=== PATIENT | female | born 1945 | race Caucasian/White ===

== ENCOUNTER 2017-08-27 15:57 | Emergency (ER) | payer MEDICARE, OTHER ==
--- NOTE | 2017-08-27 16:41 | ER Document Report ---
ED Medical Screen (RME) - General Chief Complaint: Productive Cough Stated Complaint: COUGH Time Seen by Provider: 08/27/17 16:38 Mode of Arrival: Ambulatory Information source: Patient TRAVEL OUTSIDE OF THE [place] IN LAST 30 DAYS: No - HPI Patient complains to provider of: cough Onset: Other - pt states she has had recurrent productive cough for the past few weeks despite being placed on abx and steroids by her PCP. Has had low grade fever as well - Related Data Allergies/Adverse Reactions: No Known Drug Allergies Allergy (Verified 08/27/17 15:59) Past Medical History - Social History Chew tobacco use (# tins/day): No Frequency of alcohol use: None Drug Abuse: None - Past Medical History Cardiac Medical History: Denies: Hx Coronary Artery Disease, Hx Heart Attack, Hx Hypertension Pulmonary Medical History: Denies: Hx Asthma, Hx Bronchitis, Hx COPD, Hx Pneumonia Neurological Medical History: Denies: Hx Cerebrovascular Accident, Hx Seizures Renal/ Medical History: Denies: Hx Peritoneal Dialysis GI Medical History: Denies: Hx Hepatitis, Hx Hiatal Hernia, Hx Ulcer Musculoskeltal Medical History: Reports Hx Arthritis Infectious Medical History: Denies: Hx Hepatitis Past Surgical History: Reports: Hx Hysterectomy. Denies: Hx Mastectomy, Hx Open Heart Surgery, Hx Pacemaker - Immunizations Hx Diphtheria, Pertussis, Tetanus Vaccination: Yes Physical Exam - Vital signs Vitals: Temp Pulse Resp BP Pulse Ox 98.2 F 81 18 139/76 H 97 08/27/17 16:19 08/27/17 16:19 08/27/17 16:19 08/27/17 16:19 08/27/17 16:19 Course - Vital Signs Vital signs: Temp Pulse Resp BP Pulse Ox 98.2 F 81 18 139/76 H 97 08/27/17 16:19 08/27/17 16:19 08/27/17 16:19 08/27/17 16:19 08/27/17 16:19
[2017-08-27 17:31] LABS: ABSOLUTE EOSINOPHILS # (AUTO) 0.1 10^3/uL (0.0-0.6); ABSOLUTE LYMPHOCYTES (AUTO) 1.8 10^3/uL (0.5-4.7); ABSOLUTE MONOCYTES (AUTO) 0.6 10^3/uL (0.1-1.4); BASOPHILS % (AUTO) 0.5 % (0-2); EOSINOPHILS % (AUTO) 2.9 % (0-6); HEMATOCRIT 44.1 % (36.0-47.0); HEMOGLOBIN 14.9 g/dL (12.0-15.5); HGB HCT DIFFERENCE 0.6; LYMPHOCYTES % (AUTO) 39.9 % (13-45); MEAN CORPUSCULAR HEMOGLOBIN 33.1 pg (27.0-33.4); MEAN CORPUSCULAR HGB CONC 33.9 g/dL (32.0-36.0); MEAN CORPUSCULAR VOLUME 98 fl (80-97); RED BLOOD COUNT 4.52 10^6/uL (3.72-5.28); RED CELL DISTRIBUTION WIDTH 12.9 % (11.5-14.0); SEGMENTED NEUTROPHILS % (AUTO) 43.7 % (42-78); WHITE BLOOD COUNT 4.5 10^3/uL (4.0-10.5)
--- NOTE | 2017-08-27 17:40 | RADIOLOGY REPORT (SQ) ---
EXAM DESCRIPTION: CHEST PA/LAT COMPLETED DATE/TIME: 08/27/2017 5:26 pm REASON FOR STUDY: productive cough COMPARISON: 11/07/2012 EXAM PARAMETERS: NUMBER OF VIEWS: two views TECHNIQUE: Digital Frontal and Lateral radiographic views of the chest acquired. RADIATION DOSE: NA LIMITATIONS: none FINDINGS: LUNGS AND PLEURA: No opacities, masses or pneumothorax. No pleural effusion. MEDIASTINUM AND HILAR STRUCTURES: No masses or contour abnormalities. HEART AND VASCULAR STRUCTURES: Heart normal size. No evidence for failure. BONES: No acute findings. HARDWARE: None in the chest. OTHER: No other significant finding. IMPRESSION: NO SIGNIFICANT RADIOGRAPHIC FINDING IN THE CHEST. TECHNICAL DOCUMENTATION: JOB ID: [id number] [employer]- All Rights Reserved
[2017-08-27 17:46] LABS: ALANINE AMINOTRANSFERASE 39 U/L (9-52); ALBUMIN 4.4 g/dL (3.5-5.0); ALKALINE PHOSPHATASE 77 U/L (38-126); ANION GAP 15 (5-19); ASPARTATE AMINO TRANSFERASE 25 U/L (14-36); BILIRUBIN,DIRECT 0.3 mg/dL (0.0-0.4); BILIRUBIN,TOTAL 0.4 mg/dL (0.2-1.3); BLOOD UREA NITROGEN 12 mg/dL (7-20); CALCIUM 9.5 mg/dL (8.4-10.2); CARBON DIOXIDE 23 mmol/L (22-30); CHLORIDE 104 mmol/L (98-107); CREATININE RESULT 0.91 mg/dL (0.52-1.25); GLUCOSE 94 mg/dL (75-110); POTASSIUM 4.7 mmol/L (3.6-5.0); SODIUM 141.7 mmol/L (137-145); TOTAL PROTEIN 7.4 g/dL (6.3-8.2)
[2017-08-27] MEDS ORDERED: DOXYCYCLINE HYCLATE 100 MG TABLET PO ONE (20:48)
[2017-08-27] MEDS ORDERED: BENZONATATE 100 MG CAPSULE PO ONE (20:51)
--- NOTE | 2017-08-27 20:56 | ER Document Report ---
ED General - General Chief Complaint: Productive Cough Stated Complaint: COUGH Time Seen by Provider: 08/27/17 16:38 Mode of Arrival: Ambulatory Notes: Patient is a 72-year-old female comes emergency department for chief complaint of productive cough with yellow sputum production for the past several days, she also does have some sinus congestion and voice hoarseness. states that she sounded like she was wheezing at night. Patient does not smoke, has no history of COPD or asthma, states that she has had recurrent episodes of the same since April. She was treated with azithromycin twice before and had "shots of steroids". Patient is typically very healthy, she takes no daily medications, only past medical history reported is arthritis and hysterectomy. TRAVEL OUTSIDE OF THE [place] IN LAST 30 DAYS: No - Related Data Allergies/Adverse Reactions: No Known Drug Allergies Allergy (Verified 08/27/17 15:59) Past Medical History - General Information source: Patient - Social History Smoking Status: Never Smoker Chew tobacco use (# tins/day): No Frequency of alcohol use: None Drug Abuse: None Family History: Reviewed & Not Pertinent Patient has suicidal ideation: No Patient has homicidal ideation: No - Past Medical History Cardiac Medical History: Denies: Hx Coronary Artery Disease, Hx Heart Attack, Hx Hypertension Pulmonary Medical History: Denies: Hx Asthma, Hx Bronchitis, Hx COPD, Hx Pneumonia Neurological Medical History: Denies: Hx Cerebrovascular Accident, Hx Seizures Renal/ Medical History: Denies: Hx Peritoneal Dialysis GI Medical History: Denies: Hx Hepatitis, Hx Hiatal Hernia, Hx Ulcer Musculoskeltal Medical History: Reports Hx Arthritis Infectious Medical History: Denies: Hx Hepatitis Past Surgical History: Reports: Hx Hysterectomy. Denies: Hx Mastectomy, Hx Open Heart Surgery, Hx Pacemaker - Immunizations Hx Diphtheria, Pertussis, Tetanus Vaccination: Yes Review of Systems - Review of Systems Constitutional: See HPI EENT: No symptoms reported Cardiovascular: No symptoms reported Respiratory: See HPI Gastrointestinal: No symptoms reported Genitourinary: No symptoms reported Female Genitourinary: No symptoms reported Musculoskeletal: No symptoms reported Skin: No symptoms reported Hematologic/Lymphatic: No symptoms reported Neurological/Psychological: No symptoms reported Physical Exam - Vital signs Vitals: Temp Pulse Resp BP Pulse Ox 98.2 F 81 18 139/76 H 97 08/27/17 16:19 08/27/17 16:19 08/27/17 16:19 08/27/17 16:19 08/27/17 16:19 Interpretation: Normal - General General appearance: Appears well, Alert In distress: None - HEENT Head: Normocephalic, Atraumatic Eyes: Normal Pupils: PERRL - Respiratory Respiratory status: No respiratory distress. No: Respiratory distress, Retractions, Tachypnea Chest status: Nontender Breath sounds: Nonproductive cough, Other - Scattered coarse lung sounds in the right lung only, no wheezing, rales, rhonchi, normal lung auscultation otherwise Chest palpation: Normal - Cardiovascular Rhythm: Regular. No: Tachycardia Heart sounds: Normal auscultation, S1 appreciated, S2 appreciated Murmur: No - Abdominal Inspection: Normal Distension: No distension Bowel sounds: Normal Tenderness: Nontender Organomegaly: No organomegaly - Back Back: Normal, Nontender - Extremities General upper extremity: Normal inspection, Nontender, Normal strength, Normal temperature General lower extremity: Normal inspection, Nontender, Normal strength, Normal temperature - Neurological Neuro grossly intact: Yes Cognition: Normal Orientation: AAOx4 Bob Coma Scale Eye Opening: Spontaneous Novelty Coma Scale Verbal: Oriented Bob Coma Scale Motor: Obeys Commands Novelty Coma Scale Total: 15 Speech: Normal Motor strength normal: LUE, RUE, LLE, RLE Sensory: Normal - Psychological Associated symptoms: Normal affect, Normal mood - Skin Skin Temperature: Warm Skin Moisture: Dry Skin Color: Normal Course - Re-evaluation Re-evalutation: Patient does have some coarse breath sounds in the right lung compared to left, clear lungs otherwise, no hypoxia, tachypnea, or signs of distress. Chest x- ray unremarkable, CBC, chemistry, influenza are unremarkable. Patient has a productive cough. She most likely has bronchitis, however because of slightly abnormal lung sounds to be covered with both prednisone and doxycycline. This was decided after discussion with patient. Patient is to follow-up closely with her primary provider, she is to return immediately if she develops any concerning or worsening symptoms including difficulty breathing, spiking fever, etc. Patient and state understanding and agreement with plan. - Vital Signs Vital signs: Temp Pulse Resp BP Pulse Ox 98.2 F 76 18 136/74 H 100 08/27/17 16:19 08/27/17 21:00 08/27/17 21:00 08/27/17 21:00 08/27/17 21:00 - Laboratory Result Diagrams: 08/27/17 17:08 08/27/17 17:08 Laboratory results interpreted by me: 08/27/17 17:08 MCV 98 H Discharge - Discharge Clinical Impression: Productive cough, Sinus congestion Condition: Stable Disposition: HOME, SELF-CARE Additional Instructions: Your symptoms and examination are consistent with bronchitis. Chest x-ray, influenza test, and lab work did not show any positives or concerning abnormalities. Recommendation is to take the doxycycline and prednisone as prescribed, take the Tessalon if needed for cough, drink plenty of fluids. I also recommend considering [id number] antiallergy medication on a daily basis such as Claritin or Zyrtec because of suspected allergic component. Follow-up with primary care. Return the emergency department for any concerning or worsening symptoms including difficulty breathing, spiking fever, or any other concerning symptoms. Prescriptions: Benzonatate [Tessalon Perle 100 mg Capsule] 100 mg PO Q8HP PRN #20 cap PRN Reason: Doxycycline Hyclate 100 mg PO BID #14 capsule Prednisone [Deltasone 10 mg Tablet] 10 mg PO ASDIR PRN #21 tablet PRN Reason: Referrals: HAIR MCCRARY FNP-C [Primary Care Provider] - Follow up in 1 week
[2017-08-27 21:23] VITALS: BP 136/74
== END 2017-08-27 21:25 | disposition home or self-care (01) ==
LOC: ER 15:57
DX: R05 Cough (principal); R09.81 Nasal congestion; R49.0 Dysphonia; R09.89 Other specified symptoms and signs involving the circulatory and respiratory systems
CPT/HCPCS: 99283; 36415; 85025; 80053; 87804; 71020; A9270 ×2

== ENCOUNTER 2020-08-10 21:35 | Emergency (ER) | payer MEDICARE, OTHER ==
[2020-08-10] MEDS ORDERED: ONDANSETRON 4 MG TAB.RAPDIS PO ONE (22:17)
--- NOTE | 2020-08-10 22:24 | ER Document Report ---
ED Medical Screen (RME) - General Chief Complaint: Abdominal Pain Stated Complaint: ABDOMINAL PAIN,VOMITING Time Seen by Provider: 08/10/20 22:13 Primary Care Provider: HAIR MCCRARY FNP-C [Primary Care Provider] - Follow up as needed Mode of Arrival: Wheelchair Information source: Patient Notes: HPI; 75-year-old female presents to the emergency room complaining of sudden onset of nausea, vomiting, abdominal pain that started around 4 PM today. Denies any fevers. No urinary symptoms. States he tried drinking leni suellen without relief. Patient is actively vomiting in the lobby. PE: She is alert and oriented x3. Moderate distress noted. Lungs: Clear to auscultation without rales, rhonchi, wheezes. Heart regular rate rhythm without murmurs, rubs, gallops plan I have greeted and performed a rapid initial assessment of this patient. A comprehensive ED assessment and evaluation of the patient, analysis of test results and completion of the medical decision making process will be conducted by additional ED providers. I have specifically instructed the patient or family members with the patient to immediately return to any nursing staff shoul d anything change in the patient's condition or with their chief complaint. TRAVEL OUTSIDE OF THE [place] IN LAST 30 DAYS: No - Related Data Allergies/Adverse Reactions: No Known Drug Allergies Allergy (Verified 08/27/17 15:59) Past Medical History - Past Medical History Cardiac Medical History: Denies: Hx Coronary Artery Disease, Hx Heart Attack, Hx Hypertension Pulmonary Medical History: Denies: Hx Asthma, Hx Bronchitis, Hx COPD, Hx Pneumonia Neurological Medical History: Denies: Hx Cerebrovascular Accident, Hx Seizures Renal/ Medical History: Denies: Hx Peritoneal Dialysis GI Medical History: Denies: Hx Hepatitis, Hx Hiatal Hernia, Hx Ulcer Musculoskeltal Medical History: Reports Hx Arthritis Infectious Medical History: Denies: Hx Hepatitis Past Surgical History: Reports: Hx Hysterectomy. Denies: Hx Mastectomy, Hx Open Heart Surgery, Hx Pacemaker - Immunizations Hx Diphtheria, Pertussis, Tetanus Vaccination: Yes Physical Exam - Vital signs Vitals: Temp Pulse Resp BP Pulse Ox 97.8 F 78 18 141/88 H 97 08/10/20 21:59 08/10/20 21:59 08/10/20 21:59 08/10/20 21:59 08/10/20 21:59 Course - Vital Signs Vital signs: Temp Pulse Resp BP Pulse Ox 97.8 F 78 18 141/88 H 97 08/10/20 21:59 08/10/20 21:59 08/10/20 21:59 08/10/20 21:59 08/10/20 21:59 Doctor's Discharge - Discharge Referrals: HAIR MCCRARY, [facility] [Primary Care Provider] - Follow up as needed
[2020-08-10 23:18] LABS: HEMATOCRIT 44.6 % (36.0-47.0); MEAN CORPUSCULAR HEMOGLOBIN 33.6 pg (27.0-33.4); MEAN CORPUSCULAR HGB CONC 33.6 g/dL (32.0-36.0); MEAN CORPUSCULAR VOLUME 100 fl (80-97); RED BLOOD COUNT 4.46 10^6/uL (3.72-5.28); RED CELL DISTRIBUTION WIDTH 13.3 % (11.5-14.0)
[2020-08-10 23:33] LABS: ALBUMIN 4.8 g/dL (3.5-5.0); ALKALINE PHOSPHATASE 122 U/L (38-126); ANION GAP 17 (5-19); ASPARTATE AMINO TRANSFERASE 46 U/L (14-36); BILIRUBIN,DIRECT 0.2 mg/dL (0.0-0.4); BILIRUBIN,TOTAL 1.3 mg/dL (0.2-1.3); BLOOD UREA NITROGEN 15 mg/dL (7-20); CALCIUM 9.8 mg/dL (8.4-10.2); CARBON DIOXIDE 21 mmol/L (22-30); CHLORIDE 103 mmol/L (98-107); GLUCOSE 169 mg/dL (75-110); POTASSIUM 4.1 mmol/L (3.6-5.0); TOTAL PROTEIN 8.4 g/dL (6.3-8.2)
[2020-08-10 23:47] LABS: ABSOLUTE LYMPHOCYTES# (MANUAL) 0.4 10^3/uL (0.5-4.7); ABSOLUTE MONOCYTES # (MANUAL) 0.1 10^3/uL (0.1-1.4); BASOPHILS % (MANUAL) 2 % (0-2); EOSINOPHILS % (MANUAL) 0 % (0-6); LYMPHOCYTES % (MANUAL) 27 % (13-45); MONOCYTES % (MANUAL) 6 % (3-13); NUCLEATED RED BLOOD CELLS 6 /100 WBC (0); SEGMENTED NEUTROPHILS % (MAN) 65 % (42-78); TOTAL CELLS COUNTED 51
[2020-08-10 23:49] LABS: PLATELET CLUMPS PRESENT; PLATELET COMMENT ADEQUATE; POIKILOCYTOSIS SLIGHT; TEAR DROP CELLS SLIGHT
[2020-08-10 23:50] LABS: PLATELET COUNT 155 10^3/uL (150-450)
[2020-08-10 23:51] LABS: WHITE BLOOD COUNT 1.5 10^3/uL (4.0-10.5)
--- NOTE | 2020-08-11 01:28 | ER Document Report ---
ED General - General Mode of Arrival: Wheelchair TRAVEL OUTSIDE OF THE [place] IN LAST 30 DAYS: No - Related Data Home Medications: Zyrtec, Benadryl <LOUANN MAY - Last Filed: 08/11/20 03:39> <GHULAM LINDA - Last Filed: 08/11/20 08:05> - General Chief Complaint: Abdominal Pain Stated Complaint: ABDOMINAL PAIN,VOMITING Time Seen by Provider: 08/10/20 22:13 Primary Care Provider: HAIR MCCRARY FNP-C [COMMUNITY BASED STAFF] - Follow up as needed - [facility] Notes: Patient is a 75-year-old female who presents emergency department for evaluation of sudden onset abdominal pain, nausea, vomiting. She had multiple episodes of nonbloody emesis. She states it is dark green. She denies any hematemesis. No fevers or chills. She has a chronic cough, which she states is no worse than normal. She had a normal bowel movement yesterday. No hematuria, urinary frequency, dysuria noted. Her pain is located in her lower abdomen without radiation. She really cannot describe it for me. She states it was excruciating earlier, cannot describe it further. She states that at this time it has improved. 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 Denies: Hx Peritoneal Dialysis GI Medical History: Denies: Hx Hepatitis, Hx Hiatal Hernia, Hx Ulcer Musculoskeletal Medical History: Reports Hx Arthritis Infectious Medical History: Denies: Hx Hepatitis Past Surgical History: Reports: Hx Hysterectomy, Other - Bladder surgery. Denies: Hx Mastectomy, Hx Open Heart Surgery, Hx Pacemaker - Immunizations Hx Diphtheria, Pertussis, Tetanus Vaccination: Yes <LOUANN MAY - Last Filed: 08/11/20 03:39> Review of Systems - Review of Systems Constitutional: No symptoms reported EENT: No symptoms reported Cardiovascular: No symptoms reported Respiratory: See HPI Gastrointestinal: See HPI Genitourinary: No symptoms reported Female Genitourinary: No symptoms reported Musculoskeletal: No symptoms reported Skin: No symptoms reported Neurological/Psychological: No symptoms reported <LOUANN MAY - Last Filed: 08/11/20 03:39> Physical Exam <LOUANN MAY - Last Filed: 08/11/20 03:39> - Vital signs Vitals: Temp Pulse Resp BP Pulse Ox 97.8 F 78 18 141/88 H 97 08/10/20 21:59 08/10/20 21:59 08/10/20 21:59 08/10/20 21:59 08/10/20 21:59 - Notes Notes: Vital signs reviewed, please refer to chart. Head is normocephalic, atraumatic. Pupils equal round, reactive to light. Neck is supple without meningismus. Heart is regular rate and rhythm. Lungs are clear to auscultation bilaterally. Abdomen is soft, mildly tender globally without rebound or guarding, normoactive bowel sounds throughout. Extremities without cyanosis, clubbing. Posterior calves are nontender. Peripheral pulses are equal. Skin is warm and dry. Patient is awake, alert, neurological exam is nonfocal. (LOUANN MAY) Course - Laboratory Result Diagrams: 08/10/20 22:52 08/10/20 22:52 - Diagnostic Test Radiology reviewed: Image reviewed, Reports reviewed <LOUANN MAY - Last Filed: 08/11/20 03:39> - Laboratory Result Diagrams: 08/10/20 22:52 08/10/20 22:52 <GHULAM LINDA - Last Filed: 08/11/20 08:05> - Re-evaluation Re-evalutation: 08/11/20 01:28 Patient presents emergency department for evaluation. She was initially seen through triage and had laboratory investigations and imaging as ordered. She has been remarkably leukopenic. I am awaiting CT scan results. I will treat her symptoms and continue to monitor. 08/11/20 02:[address] scan shows a 5 mm kidney stone. Her urine is nitrite positive. Given her low white count, I am concerned about sepsis in this patient. I have discussed this with the patient. She has seen Dr. Walker, urology at [facility] in the past. In fact she was transferred there when she was uroseptic in the past. I have a call out to [facility] for further evaluation. Patient given IV Rocephin. Sepsis fluids. She is currently improved after symptomatic medications. 08/11/20 03:[address] Frank, on-call urologist at [facility]. He agrees that the patient may in fact need stented, certainly with the sepsis, however, he thinks that this patient would be best served by being admitted by the hospitalist. He will call the assistant chief nursing officer to know the plan. Awaiting phone call from hospitalist. 08/11/20 03:32 Rapid Covid test has been ordered, is currently pending. I spoke with Dr. Hatch. He will accept the patient, checking bed status. 08/11/20 03:39 I spoke with the nursing carpenter supervisor wooden ship at [facility]. She informs me that Dr. Gaston would like an [facility] level of care bed, which they do not have at this time. He states that it might happen later this afternoon, but wanted me to be notified in case any other arrangements should be made. The patient remains currently stable with a normal map, but her blood pressure is slightly lower than it was. I do believe is reasonable to try another facility. I have a ph one call out to [facility] at this time. (LOUANN MAY) 08/11/20 08:04 resting in bed, alert. 08/11/20 08:04 Medically cleared for transfer to receiving hospital. (GHULAM LINDA) - Vital Signs Vital signs: Temp Pulse Resp BP Pulse Ox 98.9 F 107 H 28 H 102/62 96 08/11/20 07:24 08/11/20 01:44 08/11/20 07:24 08/11/20 07:24 08/11/20 07:24 08/11/20 08:03 vital sounds stable except for mild tachycardia. (GHULAM LINDA) - Laboratory Laboratory results interpreted by me: 08/10/20 08/10/20 08/11/20 22:52 22:52 02:05 WBC 1.5 L* MCV 100 H MCH 33.6 H Abs Neuts (Manual) 1.0 L Abs Lymphs (Manual) 0.4 L Carbon Dioxide 21 L Est GFR ( Amer) 55 L Est GFR (MDRD) Non-Af 45 L Glucose 169 H AST 46 H ALT 38 H Total Protein 8.4 H Urine Protein 30 H Urine Blood LARGE H Urine Nitrite POSITIVE H Ur Leukocyte Esterase SMALL H - Diagnostic Test Radiology results interpreted by me: 08/11/20 02:57 Abdomen/Pelvis CT 08/10/20 22:18 IMPRESSION: There are bilateral extrarenal pelvises present. There is moderate left hydroureteronephrosis with urothelial thickening and enhancement present secondary to a 5 mm calculus at the midportion of the left ureter. There is stranding around the left kidney. Superimposed infection is not excluded. With a urothelial thickening and enhancement, this could represent pyelitis. There are punctate calcifications within the dependent portion of the urinary bladder. Hepatic steatosis There are subpleural groundglass changes within the lung bases which may reflect dependent atelectasis, less likely infection. (LOUANN MAY) Discharge - Discharge Admitting Provider: Mamie <LOUANN MAY - Last Filed: 08/11/20 03:39> <GHULAM LINDA - Last Filed: 08/11/20 08:05> - Discharge Clinical Impression: Acute pyelitis, Left ureteral stone Sepsis Qualifiers: Sepsis type: sepsis due to unspecified organism Severe sepsis acute organ dysfunction type: unspecified Severe sepsis shock status: without septic shock Condition: Stable Disposition: [facility] Referrals: HAIR MCCRARY, ARACELIC [COMMUNITY BASED STAFF] - Follow up as needed
[2020-08-11] MEDS ORDERED: ONDANSETRON HCL INJ/PF 4 MG/2 ML SDV IV ONE (01:40)
[2020-08-11] MEDS ORDERED: MORPHINE SULFATE 10 MG/ML INJ IV ONE (01:40)
[2020-08-11] MEDS ORDERED: NORMAL SALINE 1000 ML 1,000 ML IV ONE ×3 (01:40→02:56)
--- NOTE | 2020-08-11 01:42 | RADIOLOGY REPORT (SQ) ---
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 COMPARISON: CT of abdomen and pelvis from 07/11/2015 TECHNIQUE: Axial contiguous images were obtained from the lung bases to the proximal femurs with intravenous intravenous contrast administered. Sagittal and coronal reconstructions were also obtained and reviewed. This exam was performed according to our departmental dose-optimization program, which includes automated exposure control, adjustment of the mA and/or KV according to the patient's size and/or use of iterative reconstruction technique. FINDINGS: There is some subpleural groundglass change, most likely representing atelectasis, less likely infection. No discrete pleural effusions are seen. There is a moderate hiatal hernia containing portions of the stomach. The visualized hepatic parenchyma is diffusely low in attenuation. No focal enhancing lesion is seen. Cholelithiasis is seen. No significant gallbladder wall thickening is seen. The spleen is normal in size. The pancreas is unremarkable. The bilateral adrenal glands appear unremarkable. There are bilateral extrarenal pelvises present. There is moderate left hydroureteronephrosis with urothelial thickening and enhancement present secondary to a 5 mm calculus at the midportion of the left ureter. There is stranding around the left kidney. Superimposed infection is not excluded. There is also overall decreased enhancement of the left kidney in comparison to the right. No right renal or ureteral calculi are seen. There are punctate calcifications seen at the dependent portion of the urinary bladder at the midline. The stomach is not well distended. The small bowel loops appear unremarkable. No pericolonic inflammatory stranding is seen. The appendix appears unremarkable. There is no evidence of pneumoperitoneum or free fluid. The aorta and IVC appear normal in size. No significantly enlarged lymph nodes are seen in the abdomen or pelvis. Review of the bone show no evidence of any suspicious lytic or blastic lesions. Multilevel degenerative changes are seen within the lumbar spine. IMPRESSION: There are bilateral extrarenal pelvises present. There is moderate left hydroureteronephrosis with urothelial thickening and enhancement present secondary to a 5 mm calculus at the midportion of the left ureter. There is stranding around the left kidney. Superimposed infection is not excluded. With a urothelial thickening and enhancement, this could represent pyelitis. There are punctate calcifications within the dependent portion of the urinary bladder. Hepatic steatosis There are subpleural groundglass changes within the lung bases which may reflect dependent atelectasis, less likely infection.
[2020-08-11 02:21] LABS: APPEARANCE,URINE SLIGHTLY-CLOUDY; BILIRUBIN,URINE NEGATIVE (NEGATIVE); COLOR,URINE YELLOW; GLUCOSE, URINE NEGATIVE (NEGATIVE); KETONES,URINE NEGATIVE (NEGATIVE); LEUKOCYTE ESTERASE,URINE SMALL (NEGATIVE); NITRITE,URINE POSITIVE (NEGATIVE); PROTEIN,URINE 30 mg/dL (NEGATIVE); URINE SPECIFIC GRAVITY 1.026; UROBILINOGEN,URINE NEGATIVE mg/dL (<2.0)
[2020-08-11] MEDS ORDERED: CEFTRIAXONE 1 GM/D5W RTU 1 GM/50 ML RTUPB IV ONE (02:28)
[2020-08-11 07:33] VITALS: BP 102/62
[2020-08-11 13:08] LABS: PATH REVIEW PATHOLOGIST REVIEWED
== END 2020-08-11 07:59 | disposition short-term general hospital (02) ==
LOC: ER 21:35
DX: A41.9 Sepsis, unspecified organism (principal); N20.1 Calculus of ureter; N10 Acute pyelonephritis; R10.9 Unspecified abdominal pain; R11.2 Nausea with vomiting, unspecified; Z90.710 Acquired absence of both cervix and uterus; Z20.828 Contact with and (suspected) exposure to other viral communicable diseases
CPT/HCPCS: 99285; 96361; 96375; 96365; 36415; 87040; 87086; 83690; 85025; 87077; 87088; 80053; 81001; 87186; 87150 ×26; 74177; U0003; A9270; J2270; J2405; J7030; J0696; C9803; 87635; S0119